=== PATIENT | female | born 1985 | race Caucasian/White ===

== ENCOUNTER → 2016-11-26 | Outpatient (CLI) | payer BC ==
[~2016-11-26] MED LIST: IBUP-15 PO; NORE0.353 PO; PREN1TAB79 PO
[2016-11-26 15:18] LABS: BASOPHILS % (AUTO) 0 % (0-2); EOSINOPHILS # (AUTO) 0.1 10^3uL; EOSINOPHILS % (AUTO) 1 % (0-4); LYMPHOCYTES # (AUTO) 1.3 X10^3; MEAN CORPUSCULAR HEMOGLOBIN 30.8 PG (26.0-34.0); MEAN CORPUSCULAR HGB CONC 33.2 g/dL (31.0-37.0); MEAN CORPUSCULAR VOLUME 93 FL (80-100); MEAN PLATELET VOLUME 9.5 FL (6.0-9.5); MONOCYTES # (AUTO) 0.8 X10^3; MONOCYTES % (AUTO) 10 % (3-11); NEUTROPHILS # (AUTO) 5.7 X10^3; NEUTROPHILS % (AUTO) 73 % (51-67); PLATELET COUNT 210 10^3uL (150-450)
[2016-11-26 16:04] LABS: BILIRUBIN,URINE Negative (Negative); GLUCOSE, URINE (UA) Negative (Negative); LEUKOCYTE ESTERASE, URINE Negative (Negative); UROBILINOGEN,URINE 0.2 mg/dL (0.2-1.0)
[2016-11-26 16:06] LABS: CLARITY,URINE Slightly Cloudy; COLOR,URINE Yellow
[2016-11-26 21:32] LABS: HEPATITIS B SURFACE ANTIGEN C Negative
== END ==
LOC: LAB 15:01
PROVIDERS: ATTEND Obstetrics & Gynecology
DX: Z34.81 Encounter for supervision of other normal pregnancy, first trimester (principal)
CPT/HCPCS: 36415; 81003; 85025; 86592; 86762; 86850; 86900; 86901; 87088; 87340; 87491

== ENCOUNTER → 2016-11-28 | Outpatient (CLI) | payer BC ==
--- NOTE | 2016-11-28 16:54 | Diagnostic Imaging Report ---
PROCEDURE: US OB SINGLE FETUS <14 WKS. TECHNIQUE: Multiple real-time grayscale images were obtained over the gravid uterus in various projections. INDICATION: Assessment for size and dates. FINDINGS: There is presence of a viable intrauterine . No abnormal perigestational fluid collections. Biometrical measurements are as follows: Biparietal diameter 2.04 cm, age 13 weeks 2 days. Head circumference 7.64 cm, age 13 weeks 2 days. Abdominal circumference 6.47 cm, age 13 weeks 2 days. Femur length 1.12 cm, age 13 weeks 3 days. Sonographic estimated age: 13 weeks 3 days. Sonographic estimated date of delivery: 06/02/2017. heart rate: 172 BPM Estimated Weight: 72 gm (+/- 11 gm) LMP Percentile: 84% Imaging of the adnexa appearing unremarkable. IMPRESSION: 1. Single intrauterine with a sonographic estimated age of 13 weeks 3 days for an estimated date of delivery of June 02, 2017. Consideration for followup imaging for anatomical assessment. Dictated by: Dictated on workstation # [id number]
== END ==
LOC: RAD 14:33
PROVIDERS: ATTEND Obstetrics & Gynecology
DX: O36.80X0 Pregnancy with inconclusive fetal viability, not applicable or unspecified (principal); Z3A.13 13 weeks gestation of pregnancy
CPT/HCPCS: 76801